=== PATIENT | male | born 1965 | race Caucasian/White ===

== ENCOUNTER 2023-01-03 17:00 | Outpatient (RCR) | payer OTHER, SELFPAY | END 2023-04-03 14:43 | disposition home or self-care (01) | PROVIDERS: Visit Provider Specialist | DX: M48.062 Spinal stenosis, lumbar region with neurogenic claudication (principal); M41.25 Other idiopathic scoliosis, thoracolumbar region; M54.50 Low back pain, unspecified; M62.81 Muscle weakness (generalized); Z51.89 Encounter for other specified aftercare | CPT/HCPCS: 97110; 97140; 97162 ==